=== PATIENT | female | born 1970 | race Two or more races ===

== ENCOUNTER 2019-03-22 11:04 | Outpatient (CLI) | payer OTHER | END 2019-03-22 11:12 | disposition home or self-care (01) | LOC: SONOGRAMA 11:04 | DX: D18.01 Hemangioma of skin and subcutaneous tissue (principal) ==

== ENCOUNTER 2019-11-11 06:35 | Emergency (ER) | payer OTHER ==
[~2019-11-11] VITALS: Ht 160 cm; Wt 54.4 kg
== END 2019-11-11 13:43 | disposition home or self-care (01) ==
LOC: ER 06:35 → EMR PED 06:43 → ER 06:43
DX: K52.89 Other specified noninfective gastroenteritis and colitis (principal)

== ENCOUNTER → 2019-12-07 | Outpatient (CLI) | payer OTHER | END | disposition home or self-care (01) | LOC: RAD 10:30 | DX: J11.1 Influenza due to unidentified influenza virus with other respiratory manifestations (principal) ==

== ENCOUNTER 2020-06-08 16:27 | Emergency (ER) | payer OTHER ==
[~2020-06-08] VITALS: Ht 157.5 cm; Wt 54.4 kg
== END 2020-06-08 22:36 | disposition home or self-care (01) ==
LOC: ER 16:27
DX: R10.13 Epigastric pain (principal)

== ENCOUNTER 2020-10-19 07:52 | Inpatient (IN) | payer OTHER ==
[~2020-10-19] VITALS: Ht 160 cm; Wt 54.4 kg
--- NOTE | 2020-10-19 08:02 | NUR ---
PTE REFIERE MONSE DOLOR ABDOMINAL Y EN COSTADO SE MICAELA S/V YS EUBIAC EN AREA DE OBSERVACION
--- NOTE | 2020-10-19 09:18 | NUR ---
PACIENTE FEMINA ALERTA ORIENTADA DEVIDAMENTE IDENTIFICADA. SE RE ORIENTA SOBRE EL TRATAMIENTO ORDENADO POR EL MEDICO LA MISMA REFIERE ENTENDER. BAJO MEDIDAS ASEPTICAS SE CANALIZA SE MICAELA MUESTRAS DE LABORATORIO Y SE ADMINISTRAN MEDICAMENTOS. ORDENES TOMADAS POR RN: SUZE Y EJECUTADAS POR RN: Sandy DODGE.
--- NOTE | 2020-10-19 12:59 | NUR ---
Xi NIALL ORIENTA A PACIENTE SOBRE ORDEN MEDICA NUEVA, CANALIZA VENA Y ADMINISTRA MERREM 1 GM IV.
--- NOTE | 2020-10-19 15:14 | NUR ---
SE RECIBE PACIENTE DE TURNO ANTERIOR, ALERTA Y ORIENTADO EN TIEMPO LUGAR Y PERSONA. CON BARANDAS ELEVADAS Y FRENOS AJUSTADOS POR SEGURIDAD. SE ORIENTA SOBRE CONTINUIDAD DE TRATAMIENTO Y CUIDADO DE ENFERMERIA, LA MISMA VERBALIZA ENTENDER. CON VENOPUNCION PATENTE JOANNA DE ERITEMA Y EDEMA, AL MOMENTO EN S/L. PENDIENTE ADMISION.
== END 2020-10-23 10:22 | disposition home or self-care (01) | DRG 343 ==
LOC: ER 07:52 → SURH 14:48 → SEC-K 14:48 → SURH 20:05
PROVIDERS: ADMIT Surgery; ATTEND Surgery
PROC: 0DTJ4ZZ Resection of Appendix, Percutaneous Endoscopic Approach (ICD-10-PCS; principal; 2020-10-19 16:00)
DX: K35.890 Other acute appendicitis without perforation or gangrene (principal); Z20.828 Contact with and (suspected) exposure to other viral communicable diseases

== ENCOUNTER 2022-01-19 14:04 | Outpatient (CLI) | payer OTHER | END 2022-01-19 14:13 | disposition home or self-care (01) | LOC: RAD 14:04 | PROVIDERS: ATTEND Physical Medicine & Rehabilitation | DX: M47.896 Other spondylosis, lumbar region (principal); M77.52 Other enthesopathy of left foot and ankle; M77.51 Other enthesopathy of right foot and ankle ==

== ENCOUNTER 2025-05-15 13:10 | Outpatient (CLI) | payer OTHER | END 2025-05-15 13:14 | disposition home or self-care (01) | LOC: RAD 13:10 | PROVIDERS: ATTEND Physical Medicine & Rehabilitation | DX: M79.672 Pain in left foot (principal) ==